=== PATIENT | female | born 1985 | race African-American/Black ===

== ENCOUNTER 2017-03-30 15:55 | Emergency (ER) | payer SELFPAY ==
[~2017-03-30] VITALS: Ht 160 cm; Wt 87.0 kg
[2017-03-30] MEDS ORDERED: SODIUM CHLORIDE 0.9% 1,000 ML IV ONE (17:07)
[2017-03-30] MEDS ORDERED: ASPIRIN 81MG TABLET PO STA (17:07)
[2017-03-30] MEDS ORDERED: LORAZEPAM 2MG/ML CPJ IV ONE (17:15)
[2017-03-30 17:55] LABS: BASOPHILS % 0.6 % (0.0-2.0); EOSINOPHILS % 0.3 % (0.0-5.0); HEMATOCRIT. 34.6 % (36.0-48.0); HEMOGLOBIN. 11.4 g/dL (12.0-16.0); LYMPHOCYTES % 15.5 % (20.0-50.0); MEAN CORPUSCULAR HGB CONC 32.9 g/dL (31.0-37.0); MEAN PLATELET VOLUME 10.5 fl (7.4-10.4); NEUTROPHILS % 78.6 % (40.0-76.0); RED BLOOD CELL COUNT 4.07 mill/uL (4.2-5.4); RED CELL DISTRIBUTION WIDTH 14.9 % (11.6-14.6)
[2017-03-30 18:02] LABS: DIFFERENTIAL COMMENT 1
[2017-03-30 18:04] LABS: D-DIMER 0.3 mg/L FEU (<0.50); INR 1.1; PARTIAL THROMBOPLASTIN TIME 22.1 sec (24.0-34.0)
[2017-03-30 18:10] LABS: ANION GAP 13; CALCIUM 9.3 mg/dL (8.5-10.1); CARBON DIOXIDE 29 mEq/L (21-32); CHLORIDE 102 mEq/L (98-107); INDEX HEMOLYSI 4 (1-3); INDEX ICTERIC 1 (1-4); INDEX LIPEMIC 1 (1-3); TROPONIN I < 0.02 ng/mL (0.00-0.04); UREA NITROGEN BLOOD 5 mg/dL (7-21); eGFR > 60 mL/min (>60)
[2017-03-30 18:24] LABS: PLATELET 290 x1000/uL (130-400)
[2017-03-30 18:41] LABS: *BARBITURATES SCREEN URINE NEGATIVE (NEGATIVE); *BENZODIAZEPINES SCREEN URINE NEGATIVE (NEGATIVE); *COCAINE SCREEN URINE NEGATIVE (NEGATIVE); CANNABINOID URINE SCREEN NEGATIVE (NEGATIVE); ECSTASY MDMA SCREEN URINE NEGATIVE (NEGATIVE); METHADONE URINE SCREEN NEGATIVE (NEGATIVE); OPIATES URINE SCREEN NEGATIVE (NEGATIVE); PHENCYCLIDINE URINE SCREEN NEGATIVE (NEGATIVE)
[2017-03-30 18:42] LABS: HCG SCREEN NEGATIVE
[2017-03-30 18:47] LABS: *AMPHETAMINES SCREEN URINE PRESUMTIVE POSITIVE (NEGATIVE)
[2017-03-30 22:00] VITALS: BP 121/77
[2017-03-30] MEDS ORDERED: ONDANSETRON HCL 4MG/2ML VIAL IV ONE (22:15)
== END 2017-03-30 23:31 | disposition home or self-care (01) ==
LOC: ER 16:00
DX: R07.89 Other chest pain (principal); F15.10 Other stimulant abuse, uncomplicated; R06.02 Shortness of breath; Z79.82 Long term (current) use of aspirin
CPT/HCPCS: 36415; 71010; 80048; 80305; 81025; 84484; 84703; 85025; 85379; 85610; 85730; 93005; 96361; 96374; 96375; 99285; J2060; J2405; J7030; Z7610

== ENCOUNTER 2017-08-25 17:45 | Emergency (ER) | payer MEDICAID ==
[~2017-08-25] VITALS: Ht 160 cm; Wt 82.0 kg
[2017-08-26] MEDS ORDERED: KETOROLAC 60MG/2ML VIAL IM ONE (00:15)
[2017-08-26 01:11] VITALS: BP 106/65
== END 2017-08-26 01:30 | disposition home or self-care (01) ==
LOC: ER 17:56
DX: S93.401A Sprain of unspecified ligament of right ankle, initial encounter (principal); F15.10 Other stimulant abuse, uncomplicated; X50.1XXA Overexertion from prolonged static or awkward postures, initial encounter; Y93.89 Activity, other specified; Y92.013 Bedroom of single-family (private) house as the place of occurrence of the external cause
CPT/HCPCS: 73600; 81025; 96372; 99284; J1885